=== PATIENT | female | born 1990 | race Caucasian/White ===

== ENCOUNTER 2020-06-24 09:00 | Outpatient (CLI) | payer OTHER, SELFPAY ==
[2020-06-24 09:33] LABS: Basophils Percent Auto 0.4 % (0.2-1.2); Eosinophils Absolute Auto 0.1 K/mm3 (0-0.3); Eosinophils Percent Auto 1.2 % (0-4.4); Hematocrit 32.6 % (37.0-47.0); Hemoglobin 11.2 g/dL (12.0-15.0); Immature Granulocyte Absolute 0.05 K/mm3 (0.00-0.031); Immature Granulocyte Percent A 0.6 % (0-0.5); Lymphocytes Absolute Auto 1.53 K/mm3 (0.9-3.2); Mean Corpuscular HGB Conc 34.4 g/dl (32-36); Mean Corpuscular Hemoglobin 31.9 pg (26-34); Mean Corpuscular Volume 92.9 fl (80-100); Mean Platelet Volume 8.9 fl (7.4-10.4); Monocytes Absolute Auto 0.4 K/mm3 (0.1-0.6); Monocytes Percent Auto 5.3 % (2.6-8.5); Neutrophils Absolute Auto 5.9 K/mm3 (1.3-6.7); Neutrophils Percent Auto 73.5 % (45.5-73.1); Platelet Count Result 204 k/mm3 (150-375); Red Blood Count 3.51 M/mm3 (4.2-5.4); Red Cell Distribution Width 13.1 % (11.5-14.5); White Blood Count 8.1 K/mm3 (4.5-10.0)
[2020-06-24 09:35] LABS: Add Urine Microscopic? NO; Appearance Urine Clear (Clear); Bilirubin Urine Negative (Negative); Blood Urine Negative (Negative); Color Urine Yellow (Yellow); Glucose Urine UA Negative (Negative); Ketones Urine Negative (Negative); Leukocyte Esterase Ur Negative LEU/UL (NEGATIVE); Nitrate Urine Negative (Negative); Protein Urine Negative (Negative); Specific Grav Ur 1.012 (1.001-1.035); Urobilinogen Urine Negative mg/dL (<2.0)
[2020-06-24 10:23] LABS: Vitamin D 25 Hydroxy 32.5 ng/mL
[2020-06-24 10:24] LABS: HIV 1/2 Ab P24 Ag Result Negative (Negative)
[2020-06-24 10:37] LABS: Hepatitis B Surface Antigen Negative (Negative); Rubella IgG Antibody 7.7 IU/ML
[2020-06-24 10:53] LABS: Hepatitis C Virus Antibody Negative (Negative)
[2020-06-25 06:41] LABS: Rapid Plasma Reagin Non-Reactive (NonReactive)
[2020-07-02 20:39] LABS: Hematocrit 34.7 % (35.0-45.0); Hemoglobin 11.6 g/dL (11.7-15.5); MCH 32.4 pg (27.0-33.0); MCV 96.9 FL (80.0-100.0); RDW 14.5 % (11.0-15.0); Red Blood Cell Count 3.58 Mill/uL (3.80-5.10)
== END 2020-06-24 09:01 | disposition home or self-care (01) ==
PROVIDERS: PCP Internal Medicine; Visit Provider Student in an Organized Health Care Education/Training Program
DX: Z34.82 Encounter for supervision of other normal pregnancy, second trimester (principal); Z3A.00 Weeks of gestation of pregnancy not specified
CPT/HCPCS: 36415; 81003; 82306; 83021; 84443; 85025; 86592; 86703; 86762; 86787; 86803; 86850; 86900; 86901; 87086; 87340; G0432

== ENCOUNTER 2020-09-09 14:21 | Outpatient (CLI) | payer OTHER, SELFPAY ==
[2020-09-09 16:07] LABS: Basophils Percent Auto 0.4 % (0.2-1.2); Eosinophils Absolute Auto 0.1 K/mm3 (0-0.3); Eosinophils Percent Auto 0.6 % (0-4.4); Hematocrit 35.6 % (37.0-47.0); Hemoglobin 11.8 g/dL (12.0-15.0); Immature Granulocyte Percent A 0.9 % (0-0.5); Lymphocytes Absolute Auto 1.58 K/mm3 (0.9-3.2); Lymphocytes Percent Auto 14.4 % (18.3-44.2); Mean Corpuscular HGB Conc 33.1 g/dl (32-36); Mean Corpuscular Hemoglobin 31.6 pg (26-34); Mean Corpuscular Volume 95.4 fl (80-100); Mean Platelet Volume 9.1 fl (7.4-10.4); Monocytes Absolute Auto 0.6 K/mm3 (0.1-0.6); Monocytes Percent Auto 5.7 % (2.6-8.5); Neutrophils Absolute Auto 8.6 K/mm3 (1.3-6.7); Platelet Count Result 181 k/mm3 (150-375); Red Blood Count 3.73 M/mm3 (4.2-5.4); Red Cell Distribution Width 13.1 % (11.5-14.5)
[2020-09-09 16:18] LABS: Glucose 1 Hour PP 50gm Dose 117 mg/dL
== END 2020-09-09 14:22 | disposition home or self-care (01) ==
PROVIDERS: PCP Internal Medicine; Visit Provider Student in an Organized Health Care Education/Training Program
DX: Z34.82 Encounter for supervision of other normal pregnancy, second trimester (principal); Z3A.00 Weeks of gestation of pregnancy not specified
CPT/HCPCS: 36415; 82947; 85025

== ENCOUNTER 2020-10-06 14:43 | Outpatient (CLI) | payer OTHER, SELFPAY ==
[2020-10-06 15:06] LABS: Basophils Absolute Auto 0.1 K/mm3 (0.0-0.1); Basophils Percent Auto 0.4 % (0.2-1.2); Eosinophils Absolute Auto 0.1 K/mm3 (0-0.3); Eosinophils Percent Auto 0.9 % (0-4.4); Hematocrit 35.7 % (37.0-47.0); Immature Granulocyte Absolute 0.18 K/mm3 (0.00-0.031); Immature Granulocyte Percent A 1.6 % (0-0.5); Lymphocytes Absolute Auto 1.49 K/mm3 (0.9-3.2); Lymphocytes Percent Auto 12.9 % (18.3-44.2); Mean Corpuscular HGB Conc 33.6 g/dl (32-36); Mean Corpuscular Hemoglobin 32.3 pg (26-34); Mean Platelet Volume 9.2 fl (7.4-10.4); Monocytes Absolute Auto 0.8 K/mm3 (0.1-0.6); Monocytes Percent Auto 7.1 % (2.6-8.5); Neutrophils Percent Auto 77.1 % (45.5-73.1); Platelet Count Result 191 k/mm3 (150-375); Red Blood Count 3.72 M/mm3 (4.2-5.4); Red Cell Distribution Width 13.3 % (11.5-14.5); White Blood Count 11.6 K/mm3 (4.5-10.0)
[2020-10-06 17:12] LABS: HIV 1/2 Ab P24 Ag Result Negative (Negative)
[2020-10-07 06:46] LABS: Rapid Plasma Reagin Non-Reactive (NonReactive)
== END 2020-10-06 14:44 | disposition home or self-care (01) ==
LOC: ANHLAB 14:44
PROVIDERS: PCP Internal Medicine; Visit Provider Student in an Organized Health Care Education/Training Program
DX: Z34.83 Encounter for supervision of other normal pregnancy, third trimester (principal); Z3A.00 Weeks of gestation of pregnancy not specified
CPT/HCPCS: 36415; 85025; 86592; 86703; G0432

== ENCOUNTER 2020-11-17 00:08 | Inpatient (IN) | payer OTHER, SELFPAY ==
[2020-11-17] VITALS (107 sets, daily range): BP systolic 85–134; BP diastolic 46–91; PULSE 25–271; RESP 16–18; TEMP 36.2–37.3; O2SAT 79–100; BMI 31.1
[2020-11-17 01:15] LABS: Basophils Absolute Auto 0.1 K/mm3 (0.0-0.1); Basophils Percent Auto 0.4 % (0.2-1.2); Eosinophils Absolute Auto 0.1 K/mm3 (0-0.3); Eosinophils Percent Auto 0.8 % (0-4.4); Hematocrit 35.3 % (37.0-47.0); Hemoglobin 11.8 g/dL (12.0-15.0); Immature Granulocyte Absolute 0.15 K/mm3 (0.00-0.031); Immature Granulocyte Percent A 1.3 % (0-0.5); Lymphocytes Absolute Auto 1.96 K/mm3 (0.9-3.2); Lymphocytes Percent Auto 16.5 % (18.3-44.2); Mean Corpuscular HGB Conc 33.4 g/dl (32-36); Mean Corpuscular Hemoglobin 31.5 pg (26-34); Mean Corpuscular Volume 94.1 fl (80-100); Mean Platelet Volume 9.2 fl (7.4-10.4); Monocytes Percent Auto 8.3 % (2.6-8.5); Neutrophils Absolute Auto 8.6 K/mm3 (1.3-6.7); Neutrophils Percent Auto 72.7 % (45.5-73.1); Platelet Count Result 183 k/mm3 (150-375); Red Blood Count 3.75 M/mm3 (4.2-5.4); Red Cell Distribution Width 13.2 % (11.5-14.5); White Blood Count 11.9 K/mm3 (4.5-10.0)
--- NOTE | 2020-11-17 01:18 | LDADM ---
This patient, Dilma Woodward, was admitted to Labor/Delivery/Recovery 107 on 11/17/20 at 00:08. Plans for labor, pain management and were discussed with patient. Patient/family oriented to hospital policies and general routines including ID bracelet, bed and alarms, visiting hours, pain management, procedures, bathroom and other care routines, personal items, smoking policy, room service/diet and guest tray routines, infant security routines, and visiting hours. Patient/Family are encouraged to report perceived risks to care and to ask questions if they do not understand what they are told or what they should do. See OBIX for further documentation.
[2020-11-17] MEDS: LACTATED RINGERS 1,000 ML 125 ML IV CONT ×4 (01:21→06:30)
--- NOTE | 2020-11-17 02:12 | P.PNAN_ITS ---
Anes - Eval Pre Procedure Date/Time: 11/17/20 02:12 Pre Op Diagnosis: Leaking fluid Patient Data Age: 30 Gender: F Height: 1.73 m Weight: 93 kg Last Vital Signs Temp 36.2 C L 11/17/20 02:01 Pulse 93 11/17/20 02:10 BP 111/71 11/17/20 02:10 Pulse Ox 100 11/17/20 02:10 Allergies Allergy/AdvReac Type Severity Reaction Status Date / Time No Known Allergies Allergy Unknown Verified 11/13/20 12:49 Home Medications Medication Instructions Recorded Confirmed Type prenat.vits,esthela,zfg-[id number] 1 tablet PO DAILY 05/09/20 10/29/20 History Laboratory Tests 11/17/20 11/17/20 01:06 01:06 WBC 11.9 K/mm3 H K/mm3 (4.5-10.0) RBC 3.75 M/mm3 L M/mm3 (4.2-5.4) Hgb 11.8 g/dL L g/dL (12.0-15.0) Hct 35.3 % L % (37.0-47.0) MCV 94.1 fl fl (80-100) MCH 31.5 pg pg (26-34) MCHC 33.4 g/dl g/dl (32-36) RDW 13.2 % % (11.5-14.5) Plt Count 183 k/mm3 k/mm3 (150-375) MPV 9.2 fl fl (7.4-10.4) Immature Gran % (Auto) 1.3 % H % (0-0.5) Neut % (Auto) 72.7 % % (45.5-73.1) Lymph % (Auto) 16.5 % L % (18.3-44.2) [place] % (Auto) 8.3 % % (2.6-8.5) Eos % (Auto) 0.8 % % (0-4.4) Baso % (Auto) 0.4 % % (0.2-1.2) Lymph # (Auto) 1.96 K/mm3 K/mm3 (0.9-3.2) [place] # (Auto) 1.0 K/mm3 H K/mm3 (0.1-0.6) Eos # (Auto) 0.1 K/mm3 K/mm3 (0-0.3) Baso # (Auto) 0.1 K/mm3 K/mm3 (0.0-0.1) Abs Immat Gran (auto) 0.15 K/mm3 H K/mm3 (0.00-0.031) Absolute Neuts (auto) 8.6 K/mm3 H K/mm3 (1.3-6.7) Absolute Nucleated RBC 0.0 K/mm3 K/mm3 (0.0-0.012) Nucleated RBC % 0.0 % % (0.0-0.2) RPR Pending Patient hx anesthesia problems: none Family hx anesthesia problems: none PMFSH Past Medical History Medical History History of depression 2011 History of ectopic 02/2019 Miscarriage x2 Surgical History Surgical History History of salpingectomy 2018 Family History Family History Grandparent Breast cancer Other Diabetes mellitus Social History Social History Smoking status: Never smoker Second hand tobacco smoke exposure: No Alcohol intake: former Substance use: never Gender identity (if verbalized by the patient): Female Spiritual care concerns: No Exam Day of Procedure 11/17/20 02:12 Patient weight: overweight Heart: regular rate and rhythm Lungs: clear to auscultation and normal air movement Airway: Mallampati scale class II Neurological: alert and oriented
--- NOTE | 2020-11-17 02:13 | WPDANESEFPP ---
Anes - Eval Final PreProcedure Day of Procedure 11/17/20 02:13 Patient weight: overweight Heart: regular rate and rhythm Lungs: clear to auscultation and normal air movement Airway: Mallampati scale class II Neurological: alert and oriented ASA classification: II Anesthetic plan: proceed Anesthesia type and monitoring: standard monitoring Informed Consent: The patient's anesthetic plan and its attendant risks and benefits were discussed with the patient/family/POA. Questions were solicited and answers provided to the satisfaction of the patient/family/POA.
[2020-11-17] MEDS: OXYTOCIN 30 UNITS/NS 500 ML 30 UNITS/500 ML BAG IV CONT (05:38)
[2020-11-17] MEDS: miSOPROStol 200 MCG TABLET 1000 MCG (07:15)
[2020-11-17] MEDS: OXYTOCIN 30 UNITS/NS 500 ML 30 UNITS/500 ML BAG 125 UNITS IV CONT (07:34)
--- NOTE | 2020-11-17 07:34 | PM.IMHP ---
H&P: HPI History of Present Illness Date/Time: 11/17/20 07:34 Patient is a 30-year-old last menstrual period 02/16/2020 who presented to Labor and delivery shortly after midnight on 11/17/2020 at 39 weeks 2 days gestation with complaints of leakage of fluid and contractions. Patient is dated by LMP which was consistent with an ultrasound on 05/09/2020 at 12 weeks gestation. Patient reported leakage of fluid at 11:00 p.m. Reported clear amniotic fluid. Patient reports onset of contractions shortly thereafter. Patient was noted to be grossly ruptured upon arrival to Labor and delivery and was 5 cm dilated. Decision was made to admit patient in active labor. Chief Complaint: Labor Review of Systems Review of Systems: All systems reviewed & are unremarkable except as noted in HPI and below Constitutional: Constitutional: Reports as per HPI, Reports no additional constitutional complaints, Denies chills, Denies fever(s), Denies headache(s) and Denies night sweats Eyes: Eyes: Reports as per HPI and Reports no additional eye complaints ENT: Reports system reviewed and no additional complaints, except as documented, Reports as per HPI, Reports Normal hearing present and Denies headache(s) Cardiovascular: Cardiovascular: Reports as per HPI, Reports no additional cardiovascular complaints, Denies chest pain and Denies dyspnea Respiratory: Respiratory: Reports as per HPI, Reports no additional respiratory complaints, Denies cough and Denies dyspnea Gastrointestinal: Gastrointestinal: Reports as per HPI, Reports no additional gastrointestinal complaints, Denies abdominal pain, Denies change in bowel habits, Denies change in stool character, Denies nausea and Denies vomiting Genitourinary: Genitourinary: Reports no additional female genitourinary complaints, Reports as per HPI, Denies abnormal vaginal bleeding, Denies genital lesions, Denies hot flashes, Denies dyspareunia, Denies pelvic pain, Denies sexual dysfunction, Denies urinary incontinence, Denies vaginal discharge, Denies vaginal dryness and Denies vaginal odor Musculoskeletal: Musculoskeletal: Reports no additional musculoskeletal complaints and Reports as per HPI Integumentary/Breasts: Skin/Breast: Reports system reviewed and no additional complaints, except as docu, Reports as per HPI, Denies breast pain and Denies nipple discharge Neurologic: Reports system reviewed and no additional complaints, except as documented, Reports as per HPI, Reports Normal hearing present and Denies headache(s) Psychiatric: Psychiatric: Reports no additional psychiatric complaints, Reports as per HPI, Denies anxiety and Denies depression Endocrine: Endocrine: Reports no additional endocrine complaints and Reports as per HPI Hematologic/Lymphatic: Hematologic/Lymphatic: Reports no additional hematologic/lymphatic complaints and Reports as per HPI Allergic/Immunologic: Allergic/Immunologic: Reports no additional allergic/immunologic complaints and Reports as per HPI PMFSH Past Medical History Medical History History of depression 2011 History of ectopic 02/2019 Miscarriage x2 Surgical History Surgical History History of salpingectomy 2018 Family History Family History Grandparent Breast cancer Other Diabetes mellitus Social History Social History Smoking status: Never smoker Second hand tobacco smoke exposure: No Alcohol intake: former Substance use: never Gender identity (if verbalized by the patient): Female Spiritual care concerns: No Meds Home Medications and Allergies Home Medications Medication Instructions Recorded Confirmed Type prenat.vits,esthela,hoc-vpnc-ybscg 1 tablet PO DAILY 05/09/20 10/29/20 History Allergies Allergy/AdvReac
--- NOTE | 2020-11-17 07:42 | WPDHPUPDATE1 ---
History and Physical Update Update Date/Time: 11/17/20 07:42 History and Physical has been reviewed, including an updated exam of the patient. There are NO changes in the patient's condition. Risks, benefits, and alternatives have been discussed and questions answered. Patient agrees to proceed with procedure.
--- NOTE | 2020-11-17 07:42 | PM.OBPRVD ---
OB - Delivery Note Procedure Delivery date: 11/17/20 Procedure: Patient is a 30-year-old now who presented to labor and delivery shortly after midnight on 11/17/2020 at 39 weeks 2 days gestation with complaints of leakage of fluid and contractions. Patient was noted to be grossly ruptured and max approximately every 3 minutes. Decision was made to admit patient in active labor. Per RN, patient was 5 cm dilated at time of presentation. She was admitted to labor and delivery and allowed to progress on own. Patient became increasingly uncomfortable and requested an epidural for pain management, which was placed without difficulty. Patient made slow progress and was noted to be 7 cm after approximately 5 hours on labor and delivery. Decision was made to augment patient with Pitocin. an IUPC was also placed for enhanced monitoring. Pitocin was started and slowly titrated. Patient made progressive cervical change. She was found to be fully dilated at 6:40 a.m. Patient was encouraged to push and found to be pushing well. She was prepped and draped for delivery. At 7:12 a.m., patient delivered infant head in direct OA presentation. 's head was delivered atraumatically and without difficulty. Occiput restituted to maternal right side. With subsequent push, the infant's neck, shoulders, and rest of body were delivered without difficulty. Infant was crying spontaneously. Infant's nose and mouth were suctioned with bulb suction. The was placed on maternal abdomen where care was assumed by awaiting nursing staff. Delayed cord clamping was performed for approximately 60 seconds. The cord was clamped and cut. A segment of cord was collected for cord gases. Cord blood was collected. The placenta was delivered spontaneously and intact. A moderate amount of vaginal bleeding was noted. On inspection, no lacerations were noted. Uterus was mildly atonic. Vigorous bimanual massage was performed, however, mild atony persisted. Straight catheterization was performed with return of less than 10 cc of clear urine. Cytotec 1000 mcg was administered rectally and bleeding subsided. Estimated blood loss for entire delivery was 300 cc. The was a live-born female , weighing 8 lb 10 oz, Apgars 9 and 9. Both mother and baby doing well at the end of delivery. events: Labor Augmentation Intrapartal events: None Delivery augmentation: pitocin Delivery monitor: external FHT, external uterine and internal uterine Route of delivery: Laceration Description: None Specimen: Yes (cord blood and cord gases) Quantitative Blood Loss (ml): 300 Anesthesia type: Epidural Disposition: floor Complications: No immediate complications Baby Date of : 11/17/20 Time of : 07:12 Weeks of gestation at delivery: 39 (39.2) gender: Female Weight (pounds): 8 Weight (ounces): 10 presentation: vertex position: Right Occiput Anterior (direct OA, then occiput restituted to right) Placenta delivery description: Spontaneous cord vessel description: 3 Vessels and Delayed Cord Clamping score one minute: 9 score five minutes: 9
--- NOTE | 2020-11-17 10:00 | PC.NURSE ---
Patient transferred to post room #282 per wheelchair from labor and delivery. Support person present. Oriented to unit, room, information board, rooming in, admission packet and security measures. Patient verbalizes understanding.
[2020-11-17] MEDS: BENZOCAINE 20% AER SPR (*SP) 56 GM CAN 1 SPRAY TOPICAL (10:20)
[2020-11-17] MEDS: WITCH HAZEL 40 PADS 1 PAD TOPICAL (10:20)
--- NOTE | 2020-11-17 11:30 | PC.NURSE ---
Mother called out for assist with feeding. Consulted with patient, mother reports has fed well first feeding. Mother reports she breast, formula and pumped and bottle fed first child. Mother was always concerned was not getting enough. Reviewed colostrum to milk transitioning, signs of adequate intake and nurse assessment of infant discussing with parents if infant is not WNL for signs of adequate intake. Mother states she is also concerned she has small nipples and may need a nipple shield. Both nipples appear normal with small profile. Demonstrated rolling or self expressing before latch may draw and/or elongate nipple before latching Reviewed feeding cues, frequencies, duration of feedings, feeding elimination flow sheet, and signs of adequate intake. Demonstrated stimulation techniques to wake infant for feeding. Assisted with infant to breast. Reviewed positioning/alignment in cross cradle, holding breast in U hold and guided asymmetrical latch on. was able to latch within a few attempts. Infant nursed eagerly, with steady draws and frequent swallowing noted. Reviewed signs of a correct latch, effective nursing and suck swallow ratio. Infant was able to maintain latch. Mother reported tenderness at times, infant had slipped to shallow latch. Demonstrated how to adjust latch more deeply while feeding. Mother quickly reports she can feel infant is latched more deeply and has minimal tenderness. Reviewed nipple care of lanolin, as needed. Suggested to stimulate infant while feeding to keep infant awake and nursing effectively for increased stimulation and increased intake. Instructed mother to call out for RN assistance if she is unable to latch infant for feeding or she has discomfort with nursing. Instructed feeding should be initiated three hours from start of last feeding or if feeding cues are noted before. Mother voiced understanding of information shared.
[2020-11-17 11:36] LABS: Rapid Plasma Reagin Non-Reactive (NonReactive)
[2020-11-17] MEDS: LANOLIN (LANSINOH) 7.5 GM CREAM 1 APPLIC TOPICAL (12:58)
[2020-11-17] MEDS: IBUPROFEN 600 MG TABLET PO (19:30)
[2020-11-18 04:00] VITALS: BP 117/79; PULSE 76; RESP 16; TEMP 36.6
[2020-11-18 05:33] LABS: Hemoglobin 10.5 g/dL (12.0-15.0)
[2020-11-18] MEDS: IBUPROFEN 600 MG TABLET PO ×2 (07:55→13:39)
[2020-11-18] MEDS: DOCUSATE SODIUM 100 MG CAPSULE PO (07:55)
[2020-11-18] MEDS: BENZOCAINE 20% AER SPR (*SP) 56 GM CAN 1 SPRAY TOPICAL (07:55)
[2020-11-18] MEDS: WITCH HAZEL 40 PADS 1 PAD TOPICAL (07:55)
[2020-11-18] MEDS: MULTIVIT/MIN/PREN/FOL AC/IRON TABLET 1 TAB PO (07:55)
[2020-11-18 08:00] VITALS: BP 121/88; PULSE 76; RESP 18; TEMP 36.6
--- NOTE | 2020-11-18 08:45 | PC.NURSE ---
Consult with pt., mother reports was cluster feeding most of the night. Mother reports tenderness with some feedings and voices concerns infant is getting enough. Mother supplemented during the night, and is now concerned wants to bottle feed more than breast. Assured mother it is fine to supplement small amounts after if she is concerned. Requested mother call out next feeding for assist.
--- NOTE | 2020-11-18 08:48 | WPDANLDPN2 ---
Anes-Prog Note L&D Date/Time: 11/18/20 08:48 Comfortable throughout: labor and delivery Neuraxial method: epidural Epidural/Spinal procedure site: clean & non-tender Neuro status: Neuro function grossly intact. Cardiovascular status: normal Respiratory status: normal Airway patency: baseline Mental status: baseline Post-Op hydration status: normal Vital Signs: Last Vital Signs Temp 36.6 C 11/18/20 08:00 Pulse 76 11/18/20 08:00 Resp 18 11/18/20 08:00 BP 121/88 11/18/20 08:00 Pulse Ox 98 11/17/20 12:23 Pain score (VAS): 0 Post-procedural complaints: none Patient feedback: Patient satisfied with anesthetic care.
--- NOTE | 2020-11-18 09:52 | PM.OBPNVD ---
OB - PN: Subj Subjective Date/time seen: 11/18/20 09:52 Patient crying this AM. States that the baby did not sleep much last night and that she has blues. Reports similar episode following of previous child as well. Has been on Zoloft and Lexapro in the past for anxiety and similar feelings. States that she will be happy, but that it takes a little while for her to adjust. Denies any homicidal or suicidal ideation. consoling patient as well. Otherwise, patient reports moderate lochia. Denies significant vaginal discomfort. OB - PN: Obj Data Labs CBC & Chem 7: 11/18/20 03:54 Labs: Laboratory Results - last 24 hr 11/17/20 11/18/20 01:06 03:54 Hgb 10.5 L Hct 32.0 L RPR Non-reactive OB - PN A/P Assessment and Plan (1) Normal spontaneous vaginal delivery: Code(s): O80 - Encounter for full-term uncomplicated delivery Status: Acute Assessment and Plan: PPD#1 doing well continue routine care may be dc'd home in stable condition emergency precautions reviewed (2) Mild depression: Code(s): O99.345 - Other mental disorders complicating the puerperium; F53.0 - depression Status: Acute Assessment and Plan: pt with crying episode today will restart Zoloft as pt states she did well previously on medication emergency precautions reviewed with patient and support and encouragment given Time Spent With Patient Time: Total time spent is greater than 50% in coordination of care (as documented) at patient's floor/unit and/or counseling patient:
--- NOTE | 2020-11-18 11:42 | PC.NURSE ---
1115 Mother called out for assist with feeding. Reviewed feeding cues, frequencies, duration of feedings, feeding elimination flow sheet, and signs of adequate intake. Demonstrated stimulation techniques to wake for feeding. Assisted with to breast. Reviewed positioning/alignment in cross cradle, holding breast in U hold and guided asymmetrical latch on. Infant was able to latch correctly within a few attempts. Infant nursed eagerly, with steady draws and occasional swallowing noted for bursts, followed with long pausing. Mother reported tenderness at times, had slipped to shallow latch. Demonstrated how to adjust latch more deeply while feeding. Mother quickly reports she can feel is latched more deeply and has minimal tenderness. Suggested to stimulate while feeding to keep infant awake and nursing effectively for increased stimulation, increased intake and to assist with maintaining deep latch. Reviewed signs of a correct latch, effective nursing and suck swallow ratio. was able to maintain latch without discomfort to mother. Nipple care reviewed. Mother questions if she should initiate pumping. Advised if infant continues to nurse,as she did with this feeding, is providing adequate stimulation and mother does not need to pump. If infant does not nurse or is not effectively nursing then mother should initiate pumping. Mother v/u of information shared. Mother plans on discharge this day. Mother is able to independently latch infant with appropriate positioning/alignment. She is feeding as required and waking infant to feed if needed. is feeding as required with at least 8 effective feedings in the past 24 hours, and is currently meeting outcomes for weight, output, jaundice and feeding frequencies. Mother states she feels confident to continue effective at home. Reviewed transition to breast milk, signs of adequate intake, and engorgement/relief. Instructed to call ICP if intake/output less than required. Reviewed regular medications mother is taking. Information provided per Bianca. Reviewed community resources on the [facility] website and in the Mom/Baby guide. Information on outpatient services provided. Mother has no further questions at this time.
[2020-11-18] MEDS: SERTRALINE HCL 50 MG TABLET PO (13:39)
--- NOTE | 2020-11-18 13:55 | PC.NURSE ---
Patient was given the opportunity to view the discharge video Mother & Baby Care, The First Two Weeks and to ask questions. Patient declined viewing the video and has been given the mother/baby guide for home reference.
--- NOTE | 2020-11-18 13:56 | PC.NURSE ---
Self care and infant care discharge instructions given to mother including follow up visit date and time. Pt. verbalized understanding. No questions or concerns voiced. at side.
--- NOTE | 2020-11-18 15:10 | PM.DS ---
DS: Admitting Diagnosis Admitting Diagnosis Admitting Diagnosis: labor DS: Summary Hospital Course Hospital Course: uncomplicated Time Spent with Patient Time attestation: Total time spent providing and/or coordinating discharge services: DS: Data Data Completed and Pending Labs on day of discharge: Labs from last 24 hours 11/18/20 03:54 Hgb 10.5 L Hct 32.0 L Discharge Plan Discharge Attending physician on discharge: Romana Young Discharging Clinician: Romana Young Anticipated Discharge Date/Time: 11/18/20 15:00 Patient Disposition: Home, Self-Care Activity: may shower and pelvic rest Diet: regular Discharge Instructions: Education: Mom and Baby Guide Given to: Mother Follow-Up: Call your delivering provider's office for an appointment to be seen in: 4 Weeks Mom and baby should come to the [facility] for the follow-up appointment. Appointment Date/Time: October at 11:00 am What to expect at your follow-up visit: Blood Pressure Check Physical Assessment Call [phone] if you are unable to keep your appointment time. BREAST CARE: * Wear a snug supportive bra. * For engorgement discomfort: Breast Feeding: * Apply warm moist washcloths * Express milk as needed to relieve engorgement * Wear loose clothing Bottle Feeding: * May apply ice packs * For sore nipples: * Identify correct latch-on * Apply warm moist washcloths before and after nursing * Air dry nipples after nursing * May apply [place] cream to nipples PERINEAL CARE: * Until bleeding stops, use your sae bottle after urinating * Change your pad frequently throughout the day * You may take sitz baths several times a day (fill your bathtub with warm water and soak for 20 minutes.) Do NOT bathe in the water * No tub baths until seen by your physician - You may shower ACTIVITY: * Rest as much as possible. * Do not exercise or lift anything heavier than your baby (such as laundry or other children.) * Avoid stairs or driving as much as possible. * Do not put anything into the vagina. No douching, tampons, or sexual activity until seen by physician. NOTIFY PHYSICIAN IF YOU HAVE ANY QUESTIONS OR IF ANY OF THE FOLLOWING SYMPTOMS OCCUR: * If your vaginal bleeding becomes foul smelling. * If your vaginal bleeding becomes more heavy than a period or if your bleeding changes from pink to bright red. However, you may pass an occasional walnut-sized clot once or twice for the first week . * If you experience a sharp, shooting pain in you calves. * If you discover a hard, reddened area on your breast or if you experience flu-like symptoms. DIET: * Eat regular, well-balanced meals. * Drink plenty of fluids daily. If , drink to thirst. Patient Instructions: Antibiotic Form Stand Alone Forms: General Discharge Information Follow-up/Referrals: Lor Alcaraz MD [Physician] - 1 Week Romana Young MD [Physician] - Discharge Medications: New ibuprofen 600 mg Tablet 600 mg PO Q6H PRN (Reason: Cramping) RF: 0 sertraline 50 mg tablet 50 mg PO DAILY Qty: 30 RF: 0 Discontinued prenat.vits,esthela,ron-heea-geyxo Tablet 1 tablet PO DAILY RF: 0 Date of admission: 11/17/20 00:08 Primary Care Provider: Kalin Warren Admitting Provider: Romana Young Attending physician on admission: Romana Young Condition: Stable
[2020-11-20 11:58] VITALS: BP 136/80; PULSE 84; RESP 20; TEMP 36.8; O2SAT 100
== END 2020-11-18 15:17 | disposition home or self-care (01) | DRG 807 ==
LOC: ANHLDR 00:40 → ANHOB2 10:06
PROVIDERS: Admitting Provider Student in an Organized Health Care Education/Training Program; PCP Internal Medicine; Visit Provider Student in an Organized Health Care Education/Training Program
DX: O36.8330 Maternal care for abnormalities of the fetal heart rate or rhythm, third trimester, not applicable or unspecified (principal); Z37.0 Single live birth; Z3A.39 39 weeks gestation of pregnancy; O99.345 Other mental disorders complicating the puerperium; F53.0 Postpartum depression; O75.89 Other specified complications of labor and delivery
CPT/HCPCS: 36415; 84112; 85014; 85018; 85025; 86592; 86850; 86900; 86901; A9270; J2590; J2795; J7120

== ENCOUNTER 2021-12-08 17:07 | Emergency (ER) | payer OTHER, SELFPAY ==
--- NOTE | ~2021-12-08 | US_ITS ---
EXAMINATION: US OB <=14 wk fetus w TV INDICATION: Pain and bleeding, evaluate for ectopic. History of 2 prior miscarriages and one prior ec topic. TECHNIQUE: Sonography of the pelvis was performed by transabdominal and transvaginal techniques. COMPARISON: None. RESULT: Uterus: - Orientation: Retroverted and retroflexed. - Size: 7.7 x 6.5 x 5.5 cm - Myometrium: homogeneous echogenicity . Endometrial complex measures 11 mm. Trace endometrial f luid. Gestation: - Intrauterine gestational sac: Not seen -Subgestational hematoma: Absent Right ovary: - Size : 2.8 x 2.3 x 1.0 cm - Normal sonographic appearance with physiologic follicles. Dilated adnexal veins. Left ovary: - Size: 2.5 x 1.7 x 2.5 cm - Normal sonographic appearance with physiologic follicles. Dilated adnexal veins. Pelvis free fluid: None. IMPRESSION: 1. No visible intrauterine gestational sac, which may be normal in early . Spontaneous abort ion and ectopic are not excluded. Serial beta hCGs are recommended. 2. Dilated bilateral adnexal veins as can be seen with pelvic congestion syndrome. Correlate clinical ly for persistent dull pelvic pain lasting > 6 months, dysmenorrhea, dyspareunia, postcoital ache, an d urinary symptoms. Reviewed, dictated and finalized at location [facility]. IMPRESSION: 1. No visible intrauterine gestational sac, which may be normal in early pregna ncy. Spontaneous and ectopic are not excluded. Serial beta h CGs are recommended. 2. Dilated bilateral adnexal veins as can be seen with pelvic congestion syndro me. Correlate clinically for persistent dull pelvic pain lasting > 6 months, dy smenorrhea, dyspareunia, postcoital ache, and urinary symptoms.
[2021-12-08 17:11] VITALS: BP 123/85; PULSE 96; RESP 20; TEMP 36.3; O2SAT 100
[2021-12-08 17:26] LABS: Basophils Absolute Auto 0.1 K/mm3 (0.0-0.1); Basophils Percent Auto 0.6 % (0.2-1.2); Eosinophils Absolute Auto 0.2 K/mm3 (0-0.3); Eosinophils Percent Auto 2.2 % (0-4.4); Hematocrit 38.3 % (37.0-47.0); Hemoglobin 13.3 g/dL (12.0-15.0); Immature Granulocyte Absolute 0.03 K/mm3 (0.00-0.031); Immature Granulocyte Percent A 0.3 % (0-0.5); Lymphocytes Percent Auto 25.5 % (18.3-44.2); Mean Corpuscular HGB Conc 34.7 g/dl (32-36); Mean Corpuscular Hemoglobin 31.9 pg (26-34); Mean Corpuscular Volume 91.8 fl (80-100); Mean Platelet Volume 8.6 fl (7.4-10.4); Monocytes Absolute Auto 0.7 K/mm3 (0.1-0.6); Monocytes Percent Auto 7.5 % (2.6-8.5); Neutrophils Absolute Auto 5.5 K/mm3 (1.3-6.7); Neutrophils Percent Auto 63.9 % (45.5-73.1); Platelet Count Result 271 k/mm3 (150-375); Red Blood Count 4.17 M/mm3 (4.2-5.4); Red Cell Distribution Width 12.2 % (11.5-14.5); White Blood Count 8.6 K/mm3 (4.5-10.0)
[2021-12-08 17:58] LABS: Beta HCG Quantitative 217.63 mIU/ML
--- NOTE | 2021-12-08 19:35 | ED.FEMALEGU ---
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 Patient reports home test was positive few weeks ago, last menstrual period was October 24, 2021. Patient is 6 para 2 2 and ectopic once. She denies any fever, chills, nausea, vomiting. Related Data Allergies Allergy/AdvReac Type Severity Reaction Status Date / Time No Known Allergies Allergy Unknown Verified 12/08/21 19:24 Review of Systems Review of Systems: All systems reviewed & are unremarkable except as noted in HPI and below PMFSH Past Medical History Medical History History of depression 2012 History of ectopic x1 History of miscarriage, currently Miscarriage x2 Vaginal delivery x2 Surgical History Surgical History History of salpingectomy 2019 Family History Family History Grandparent Breast cancer Other Diabetes mellitus Social History Social History Smoking status: Never smoker Second hand tobacco smoke exposure: No Alcohol intake: former Alcohol use details: history of two drinks per month Substance use: never Gender identity (if verbalized by the patient): Female Spiritual care concerns: No Exam Narrative: General appearance: Well-developed, well-nourished, at the bedside Skin: Normal color Head: Normocephalic, nontraumatic Eyes: Clear conjunctiva ENT: Oropharynx normal, ears normal, nose normal Neck: Supple, nontender Chest and respiratory: Airway patent, no respiratory distress, no accessory muscle use Heart: Regular rate/rhythm Abdomen: Soft, nontender, no organomegaly, quiet bowel sounds Vascular: Normal peripheral pulses, normal capillary refill. 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 Knapp. Patient can go home, repeat hCG in 48 hours, call Dr. Young in a.m. for appointment. Ectopic is extremely less likely specially if she have tissue in the cervix. Date: 12/08/21 Time: 20:50 Vital Signs Vital signs: Vital Signs Temperature 36.3 C L 12/08/21 17:11 Pulse Rate 96 12/08/21 17:11 Respiratory Rate 20 12/08/21 17:11 Blood Pressure 123/85 12/08/21 17:11 Pulse Oximetry 100 12/08/21 17:11 Temperature 36.3 C L 12/08/21 17:11 Pulse Rate 96 12/08/21 17:11 Respiratory Rate 20 12/08/21 17:11 Blood Pressure 123/85 12/08/21 17:11 Pulse Oximetry 100 12/08/21 17:11 MDM - Female Genitourinary Lab Data Result diagrams: 12/08/21 17:19 Labs: Lab Results 12/08/21 12/08/21 12/08/21 Range/Units 17:19 17:19 17:19 WBC 8.6 (4.5-10.0) K/mm3 RBC 4.17 L (4.2-5.4) M/mm3 Hgb 13.3 (12.0-15.0) g/dL Hct 38.3 (37.0-47.0) % MCV 91.8 (80-100)
== END 2021-12-08 21:14 | disposition home or self-care (01) ==
PROVIDERS: Emergency Medicine; Emergency Provider Emergency Medicine; PCP Internal Medicine
DX: O20.0 Threatened abortion (principal); Z3A.01 Less than 8 weeks gestation of pregnancy
CPT/HCPCS: 36415; 76801; 76817; 84702; 85025; 85461; 99284

== ENCOUNTER 2021-12-10 17:14 | Outpatient (CLI) | payer OTHER, SELFPAY ==
[2021-12-10 17:59] LABS: Beta HCG Quantitative 58.88 mIU/ML
[2021-12-15 11:58] LABS: Progesterone 0.8 ng/mL (***)
== END 2021-12-10 17:15 | disposition home or self-care (01) ==
LOC: ANHLAB 17:15
PROVIDERS: PCP Internal Medicine; Visit Provider Obstetrics & Gynecology
DX: O09.299 Supervision of pregnancy with other poor reproductive or obstetric history, unspecified trimester (principal); Z3A.00 Weeks of gestation of pregnancy not specified
CPT/HCPCS: 36415; 84144; 84702

== ENCOUNTER 2022-01-07 12:55 | Emergency (ER) | payer OTHER, SELFPAY ==
[2022-01-07 13:12] VITALS: BP 93/67; PULSE 68; RESP 18; O2SAT 99
--- NOTE | 2022-01-07 13:35 | ED.ABDPAIN ---
HPI - Abdominal Pain General Chief Complaint: Abdominal Pain Stated Complaint: abd pain Time Seen by Provider: 01/07/22 13:01 History of Present Illness HPI narrative: 31-year-old female presents emergency room secondary some left suprapubic abdominal pain. Patient states that she has had pain like this before associated with an ectopic . She had multiple pregnancies and has 2 children at this time. She has had 3 miscarriages including her last miscarriage was approximately a month ago. She is also had 1 ectopic on the left side. She has not had a period since her last menstrual period. Denies any chills or fevers. She states she had sudden onset of just mild cramping type pain in the left lower supra area. She states it actually feels much better at this time. Denies any urinary symptoms. Related Data Allergies Allergy/AdvReac Type Severity Reaction Status Date / Time No Known Allergies Allergy Unknown Verified 01/07/22 13:22 Review of Systems Review of Systems: CONSTITUTIONAL: Denies fever, chills, or sweats. EYES: Denies visual changes, redness, or discharge. ENT: Denies rhinorrhea, congestion, sore throat, or otalgia. CARDIOVASCULAR: Denies chest pain, palpitations, or edema. RESPIRATORY: Denies cough or dyspnea. GASTROINTESTINAL: Denies nausea, vomiting, or diarrhea. Left suprapubic abdominal pain GENITOURINARY: Denies dysuria or hematuria. SKIN: Denies rash or itching. MUSCULOSKELETAL: Denies back pain, joint pain, or myalgia. NEUROLOGIC: Denies headache, numbness, or weakness. PSYCHIATRIC: Denies anxiety or depression. [facility] Past Medical History Medical History History of depression 2012 History of ectopic x1 History of miscarriage, currently Miscarriage x3 Vaginal delivery x2 Surgical History Surgical History History of salpingectomy 2019 Family History Family History Grandparent Breast cancer Other Diabetes mellitus Social History Social History Smoking status: Never smoker Second hand tobacco smoke exposure: No Alcohol intake: former Alcohol use details: history of two drinks per month Substance use: never Gender identity (if verbalized by the patient): Female Spiritual care concerns: No Exam Narrative: APPEARANCE: Well appearing, no pain or distress, well-nourished. Head normocephalic and atraumatic. EYES: PERRLA/EOMI, conjunctivae very clear. NOSE: Normal with no drainage EARS:TMS clear [place], with good light reflex. THROAT: Pharynx clear, no exudate. NECK: Supple. No adenopathy, no masses. RESPIRATORY: Airway patent, respirations nonlabored. Clear to auscultation bilaterally, no rales, rhonchi, wheezing. CARDIOVASCULAR: Regular rate and rhythm without murmurs, rubs, or gallops. ABDOMINAL: Soft, nontender, nondistended, no hepatosplenomegaly. No tenderness is able to be elicited with palpation Musculoskeletal: Moves all extremities. Strength/ROM intact, No edema, No calf tenderness. NEURO: Alert. Cranial nerves II through XII intact. Normal gait. Good coordination. Nonfocal examination. SKIN:: Warm, dry. Normal Color PSYCHIATRIC: Normal affect/mood, normal interaction Course Vital Signs Vital signs: Vital Signs Pulse Rate 68 01/07/22 13:12 Respiratory Rate 18 01/07/22 13:12 Blood Pressure 93/67 L 01/07/22 13:12 Pulse Oximetry 99 01/07/22 13:12 Oxygen Delivery Room Air 01/07/22 13:12 Pulse Rate 68 01/07/22 13:12 Respiratory Rate 18 01/07/22 13:12 Blood Pressure 95/63 L 01/07/22 13:46 Pulse Oximetry 99 01/07/22 13:46 Oxygen Delivery Room Air 01/07/22 13:12 MDM - Abdominal Pain MDM Narrative Medical decision making narrative: Urine test was negative an
[2022-01-07 13:38] VITALS: O2SAT 99
[2022-01-07 13:39] VITALS: BP 96/61; O2SAT 100
[2022-01-07 13:45] VITALS: O2SAT 99
[2022-01-07 13:46] VITALS: BP 95/63; O2SAT 99
== END 2022-01-07 14:11 | disposition home or self-care (01) ==
PROVIDERS: Emergency Provider Emergency Medicine; PCP Internal Medicine
DX: R10.32 Left lower quadrant pain (principal)
CPT/HCPCS: 81025; 99283

== ENCOUNTER 2022-05-13 13:20 | Outpatient (CLI) | payer OTHER, SELFPAY ==
[2022-05-13 14:31] LABS: Beta HCG Quantitative 108.32 mIU/ML
== END 2022-05-13 13:21 | disposition home or self-care (01) ==
LOC: ANHLAB 13:22
PROVIDERS: PCP Internal Medicine; Visit Provider Student in an Organized Health Care Education/Training Program
DX: O02.1 Missed abortion (principal); Z3A.00 Weeks of gestation of pregnancy not specified
CPT/HCPCS: 36415; 84702

== ENCOUNTER 2022-05-15 11:44 | Outpatient (CLI) | payer OTHER, SELFPAY ==
[2022-05-15 12:27] LABS: Beta HCG Quantitative 119.39 mIU/ML
== END 2022-05-15 11:45 | disposition home or self-care (01) ==
LOC: ANHLAB 11:46
PROVIDERS: PCP Internal Medicine; Visit Provider Student in an Organized Health Care Education/Training Program
DX: O02.1 Missed abortion (principal)
CPT/HCPCS: 36415; 84702

== ENCOUNTER 2022-05-21 17:37 | Emergency (ER) | payer OTHER, SELFPAY ==
--- NOTE | ~2022-05-21 | US_ITS ---
EXAMINATION: US OB <=14 wk fetus w TV DATE: 05/21/2022 21:26 INDICATION: Early . TECHNIQUE: Real-time transabdominal and transvaginal pelvic ultrasound was performed. COMPARISON: Ultrasound 12/08/2021 FINDINGS: TRANSABDOMINAL ULTRASOUND: The uterus measures 7.8 x 4.9 x 6.6 cm. TRANSVAGINAL ULTRASOUND: The endometrial complex measures 4 mm in thickness. There is no visible gest ational sac. The right ovary measures 4.8 x 1.5 x 2.1 cm. The left ovary measures 3.1 x 1.7 x 1.5 cm. There is no free fluid in the pelvis. IMPRESSION: 1. No visible intrauterine gestational sac, which may be normal in early . Spontaneous abor tion and ectopic are not excluded. Serial beta-hCGs are recommended. Reviewed, dictated and finalized at location [facility]. IMPRESSION: 1. No visible intrauterine gestational sac, which may be normal in early pregn loulou. Spontaneous and ectopic are not excluded. Serial beta- hCGs are recommended.
[2022-05-21 18:01] VITALS: BP 116/84; PULSE 86; RESP 14; TEMP 36.2; O2SAT 98
--- NOTE | 2022-05-21 18:09 | ED.ABDPAIN ---
HPI - Abdominal Pain General Chief Complaint: Abdominal Pain <Miguel Harkins MD - Last Filed: 05/21/22 19:05> Stated Complaint: ectopic pregnany, need methotrexate shot <Miguel Harkins MD - Last Filed: 05/21/22 19:05> Time Seen by Provider: 05/21/22 18:06 <Miguel Harkins MD - Last Filed: 05/21/22 19:05> Source: patient <Miguel Harkins MD - Last Filed: 05/21/22 19:05> Mode of arrival: ambulatory <Miguel Harkins MD - Last Filed: 05/21/22 19:05> Limitations: no limitations <Miguel Harkins MD - Last Filed: 05/21/22 19:05> History of Present Illness HPI narrative: 31 years old white female came from home because of right lower quadrant pain and vaginal bleeding, was 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 History of left ectopic . <Miguel Harkins MD - Last Filed: 05/21/22 19:05> Related Data Home Medications: Home Medications Medication Instructions Recorded Confirmed sertraline 50 mg tablet 25 mg PO .QOD 05/13/22 <Miguel Harkins MD - Last Filed: 05/21/22 19:05> Allergies/Adverse Reactions: Allergies Allergy/AdvReac Type Severity Reaction Status Date / Time No Known Allergies Allergy Unknown Verified 05/13/22 12:31 <Miguel Harkins MD - Last Filed: 05/21/22 19:05> Review of Systems Review of Systems: All systems reviewed & are unremarkable except as noted in HPI and below <Miguel Harkins MD - Last Filed: 05/21/22 19:05> PMFSH Past Medical History Medical History: Medical History History of depression 2012 History of ectopic x1 History of miscarriage, currently Miscarriage x4 Vaginal delivery x2 <Miguel Harkins MD - Last Filed: 05/21/22 19:05> Surgical History Surgical History: Surgical History History of salpingectomy 2019 <Miguel Harkins MD - Last Filed: 05/21/22 19:05> Family History Family History: Family History Grandparent Breast cancer Other Diabetes mellitus <Miguel Harkins MD - Last Filed: 05/21/22 19:05> Social History Social History: Social History Smoking status: Never smoker Second hand tobacco smoke exposure: No Alcohol intake: former Alcohol use details: history of two drinks per month Substance use: never Gender identity (if verbalized by the patient): Female Spiritual care concerns: No <Miguel Harkins MD - Last Filed: 05/21/22 19:05> Exam Narrative: General appearance: Well-developed, well-nourished Skin: Normal color Head: Normocephalic, nontraumatic Eyes: Clear conjunctiva ENT: Oropharynx normal, ears normal, nose normal Neck: Supple, nontender Chest and respiratory: Airway patent, no respiratory distress, no accessory muscle use Heart: Regular rate/rhythm Abdomen: Soft, positive right lower quadrant tenderness, no organomegaly, quiet bowel sounds Vascular: Normal peripheral pulses, normal capillary refill. 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
[2022-05-21] MEDS: SODIUM CHLORIDE 0.9% IV 1,000 ML 999 ML IV CONT (18:37)
[2022-05-21 18:50] LABS: Appearance Urine Clear (Clear); Bilirubin Urine Negative (Negative); Blood Urine Trace-intact (Negative); Color Urine Yellow (Yellow); Glucose Urine UA Negative (Negative); Ketones Urine Negative (Negative); Leukocyte Esterase Ur Trace LEU/UL (Negative); Nitrate Urine Negative (Negative); Protein Urine Negative (Negative); Specific Grav Ur 1.015 (1.001-1.035); Urobilinogen Urine 0.2 mg/dL (<2.0)
[2022-05-21 18:54] LABS: Alanine Aminotransferase 17 U/L (6-35); Albumin Level 4.9 g/dL (3.5-5.1); Alkaline Phosphatase 46 U/L (38-126); Anion Gap 11 mmol/L (8-16); Aspartate Amino Transferase 25 U/L (14-36); Bilirubin,Total 0.5 mg/dL (0.2-1.3); Blood Urea Nitrogen 16 mg/dL (7-17); Calcium 9.1 mg/dL (8.4-10.2); Carbon Dioxide 27 mmol/L (22-30); Chloride 101 mmol/L (98-107); Estimated CRCL calculation 74 ml/min; Estimated Glomerular Filt Rate > 60; Glucose 102 mg/dL (65-110); Sodium 139 mmol/L (137-145)
[2022-05-21 18:54] LABS: Mucus Urine Rare /lpf; RBC Urine 0-2 /hpf (0-2); Squamous Epithelial Cell Urine Rare /hpf (Few); WBC Urine 0-3 /hpf
[2022-05-21 18:56] LABS: Add Urine Microscopic? YES
[2022-05-21 19:10] LABS: Beta HCG Quantitative 36.74 mIU/ML
[2022-05-21 22:50] VITALS: BP 122/78; PULSE 76; RESP 18; O2SAT 99
== END 2022-05-21 22:51 | disposition home or self-care (01) ==
PROVIDERS: Emergency Medicine; Emergency Provider Emergency Medicine; PCP Internal Medicine
DX: O03.9 Complete or unspecified spontaneous abortion without complication (principal)
CPT/HCPCS: 36415; 76801; 76817; 80053; 81001; 84702; 85461; 86850; 86900; 86901; 96360; 99284; J7030

== ENCOUNTER 2023-05-10 16:35 | Outpatient (NON) | payer OTHER, SELFPAY ==
[2023-05-10 16:45] LABS: Appearance Urine Clear (Clear); Bilirubin Urine Negative (Negative); Blood Urine Trace-Intact (Negative); Color Urine Light Yellow (Yellow); Glucose Urine UA Negative (Negative); Ketones Urine Negative (Negative); Leukocyte Esterase Ur 1+ LEU/UL (Negative); Nitrate Urine Negative (Negative); Protein Urine Negative (Negative); Specific Grav Ur 1.015 (1.010-1.020); Urobilinogen Urine 0.2 mg/dL (0.2-1.0)
[2023-05-10 16:56] LABS: Add Urine Microscopic? YES
[2023-05-10 16:57] LABS: Bacteria Urine Trace /hpf; RBC Urine 0-2 /hpf (0-2); Squamous Epithelial Cell Urine Few /hpf (Few)
== END 2023-05-10 16:36 | disposition home or self-care (01) ==
LOC: CHSLAB 16:36
PROVIDERS: Visit Provider Nurse Practitioner Family
DX: R39.9 Unspecified symptoms and signs involving the genitourinary system (principal); R82.90 Unspecified abnormal findings in urine
CPT/HCPCS: 81001; 87086; 87088

== ENCOUNTER 2023-05-11 13:50 | Outpatient (CLI) | payer OTHER, MEDICAID, SELFPAY ==
[2023-05-16 13:09] LABS: Progesterone 16.9 ng/mL (***)
== END 2023-05-11 13:51 | disposition home or self-care (01) ==
PROVIDERS: PCP Nurse Practitioner Family; Visit Provider Obstetrics & Gynecology
DX: O09.299 Supervision of pregnancy with other poor reproductive or obstetric history, unspecified trimester (principal)
CPT/HCPCS: 36415; 84144; 84702

== ENCOUNTER 2023-05-16 13:05 | Outpatient (CLI) | payer OTHER, SELFPAY ==
--- NOTE | ~2023-05-16 | US_ITS ---
Pelvic ultrasound. Clinical History: First trimester , establish dates and viability Technique: Realtime transabdominal and transvaginal scanning of the pelvis was performed. Color flow Doppler and Doppler spectral analysis were performed. Findings: The uterus is anteverted, and contains an intrauterine gestation. [place]-rump length of 1.0 cm corresponds to an estimated gestational age of 7 weeks 1 day. heart rate is 152 bpm. The right ovary measures 3.0 x 2.2 x 2.3 cm. No significant right ovarian or adnexal mass is seen. The left ovary measures 3.0 x 2.7 x 4.8 cm. Left ovarian cyst measures up to 3.3 cm in maximum diamet er. There is no evidence of free fluid in the cul de sac. Impression: Live intrauterine gestation with estimated gestational age of 7 weeks 1 day. heart rate is 152 bpm. Reviewed, dictated and finalized at [facility]. Impression: Live intrauterine gestation with estimated gestational age of 7 weeks 1 day. Fe heather heart rate is 152 bpm.
== END 2023-05-16 13:06 | disposition home or self-care (01) ==
LOC: CHSIMG 13:06
PROVIDERS: PCP Nurse Practitioner Family; Visit Provider Obstetrics & Gynecology
DX: O36.80X0 Pregnancy with inconclusive fetal viability, not applicable or unspecified (principal); Z3A.01 Less than 8 weeks gestation of pregnancy
CPT/HCPCS: 76801

== ENCOUNTER 2023-07-01 15:58 | Outpatient (CLI) | payer OTHER, SELFPAY ==
[2023-07-01 16:30] LABS: Basophils Absolute Auto 0.03 K/mm3 (0.00-0.10); Basophils Percent Auto 0.4 % (0.0-1.0); Eosinophils Percent Auto 1.2 % (1.0-6.0); Hematocrit 37.2 % (35.0-49.0); Immature Granulocyte Absolute 0.03 K/mm3 (0.00-0.00); Immature Granulocyte Percent A 0.4 % (0.0-0.0); Lymphocytes Absolute Auto 1.83 K/mm3 (1.10-4.50); Lymphocytes Percent Auto 21.8 % (18.0-42.0); Mean Corpuscular HGB Conc 34.9 g/dL (32.0-36.0); Mean Corpuscular Hemoglobin 32.4 pg (27.0-31.0); Mean Corpuscular Volume 92.8 fL (78.0-102.0); Mean Platelet Volume 9.2 fl (9.2-11.8); Monocytes Absolute Auto 0.39 K/mm3 (0.10-0.90); Monocytes Percent Auto 4.7 % (2.0-11.0); Neutrophils Percent Auto 71.5 % (50.0-70.0); Platelet Count Result 256 K/mm3 (150-420); Red Blood Count 4.01 M/mm3 (4.20-5.40); Red Cell Distribution Width 12.7 % (11.6-14.4); White Blood Count 8.4 K/mm3 (4.8-10.8)
[2023-07-01 16:32] LABS: Appearance Urine Clear (Clear); Bilirubin Urine Negative (Negative); Blood Urine Negative (Negative); Color Urine Light Yellow (Yellow); Glucose Urine UA Negative (Negative); Ketones Urine Negative (Negative); Leukocyte Esterase Ur Negative (Negative); Nitrate Urine Negative (Negative); Protein Urine Negative (Negative); Urobilinogen Urine 0.2 mg/dL (0.2-1.0)
[2023-07-01 16:38] LABS: Add Urine Microscopic? NO
[2023-07-01 17:29] LABS: HIV 1 P24 AG Negative (Negative); HIV 1/2 AB Negative (Negative)
[2023-07-04 14:09] LABS: Rubella IgG Antibody 1.21 Index
[2023-07-05 12:47] LABS: Hepatitis B Surface Antigen Nonreactive (Nonreactive); Hepatitis C Virus Antibody Nonreactive
[2023-07-06 08:10] LABS: RPR Screen Non-Reactive (Non-Reactive)
== END 2023-07-01 15:59 | disposition home or self-care (01) ==
LOC: CHSLAB 16:00
PROVIDERS: PCP Nurse Practitioner Family; Visit Provider Registered Nurse
DX: Z34.90 Encounter for supervision of normal pregnancy, unspecified, unspecified trimester (principal)
CPT/HCPCS: 36415; 81003; 82306; 84443; 85025; 86592; 86762; 86787; 86803; 86900; 86901; 87077; 87086; 87088; 87186; 87340; 87806

== ENCOUNTER 2023-09-24 08:19 | Outpatient (CLI) | payer OTHER, SELFPAY ==
[2023-09-24 09:36] LABS: Basophils Absolute Auto 0.03 K/mm3 (0.00-0.10); Basophils Percent Auto 0.3 % (0.0-1.0); Eosinophils Absolute Auto 0.09 K/mm3 (0.02-0.50); Hematocrit 35.9 % (35.0-49.0); Hemoglobin 11.8 g/dL (12.0-15.0); Immature Granulocyte Absolute 0.04 K/mm3 (0.00-0.00); Immature Granulocyte Percent A 0.5 % (0.0-0.0); Lymphocytes Absolute Auto 1.38 K/mm3 (1.10-4.50); Mean Corpuscular HGB Conc 32.9 g/dL (32.0-36.0); Mean Corpuscular Hemoglobin 31.1 pg (27.0-31.0); Mean Corpuscular Volume 94.7 fL (78.0-102.0); Mean Platelet Volume 8.7 fl (9.2-11.8); Monocytes Absolute Auto 0.46 K/mm3 (0.10-0.90); Monocytes Percent Auto 5.3 % (2.0-11.0); Neutrophils Absolute Auto 6.6 K/mm3 (1.7-7.2); Neutrophils Percent Auto 76.9 % (50.0-70.0); Platelet Count Result 195 K/mm3 (150-420); Red Blood Count 3.79 M/mm3 (4.20-5.40); Red Cell Distribution Width 12.8 % (11.6-14.4); White Blood Count 8.6 K/mm3 (4.8-10.8)
[2023-09-24 10:31] LABS: Glucose 1 Hour PP 50gm Dose 117 mg/dL (70-130)
== END 2023-09-24 08:20 | disposition home or self-care (01) ==
LOC: CHSLAB 08:23
PROVIDERS: PCP Nurse Practitioner Family; Visit Provider Nurse Practitioner Family
DX: Z34.82 Encounter for supervision of other normal pregnancy, second trimester (principal)
CPT/HCPCS: 36415; 82947; 85025; 86850

== ENCOUNTER 2023-11-08 15:41 | Observation (INO) | payer OTHER, SELFPAY ==
[2023-11-08 16:06] VITALS: BP 118/75; PULSE 87
[2023-11-08 16:16] VITALS: BMI 31.0
--- NOTE | 2023-11-08 16:16 | OBADM ---
This patient, Dilma Woodward, admitted to the OB room OB Post 116 for observation. Patient/family oriented to hospital policies and general routines including ID bracelet, bed and alarms, visiting hours, pain management, procedures, bathroom and other care routines, personal items, smoking policy, room service/diet, and visiting hours. Patient/Family are encouraged to report perceived risks to care and to ask questions if they do not understand what they are told or what they should do.
[2023-11-08 16:25] LABS: Appearance Urine Cloudy (Clear); Bacteria Urine None Seen /hpf; Bilirubin Urine Negative (Negative); Blood Urine Negative (Negative); Color Urine Yellow (Yellow); Glucose Urine UA Negative (Negative); Ketones Urine Negative (Negative); Leukocyte Esterase Ur 3+ LEU/UL (Negative); Nitrate Urine Negative (Negative); Non Pathogenic Casts 0-2; Protein Urine Negative (Negative); RBC Urine 0-2 /hpf (0-2); Specific Grav Ur 1.008 (1.001-1.035); Squamous Epithelial Cell Urine Few /hpf (Few); Urobilinogen Urine 0.2 mg/dL (<2.0); pH Urine 7.5 (5.0-9.0)
[2023-11-08 16:31] LABS: Add Urine Microscopic? YES
[2023-11-08 17:00] VITALS: BP 111/71; PULSE 79
--- NOTE | 2023-11-09 15:15 | P.PNOB_ITS ---
OB - Triage/Final Diagnosis Visit Information Comments/Additional reasons for admission: I have assessed the risk for this patient, Dilma Woodward, and determined that she would benefit from observation care. Evaluation Laboratory results: Laboratory Tests 11/08/23 16:06 Urine Color Yellow Urine Appearance Cloudy H Urine pH 7.5 Ur Specific [place] 1.008 Urine Protein Negative Urine Glucose (UA) Negative Urine Ketones Negative Ur Blood (Man) Negative Urine Nitrate Negative Urine Bilirubin Negative Urine Urobilinogen 0.2 Leukocyte Esterase Rfl 3+ H Urine RBC 0-2 Urine WBC 6-10 H Ur Squamous Epith Cells Few Urine Bacteria None seen Urine Casts 0-2 Vital signs: Vital Signs - 24 hr 11/08/23 16:06 11/08/23 17:00 Pulse Rate 87 79 Blood Pressure 118/75 111/71 Final Diagnosis (1) contractions: Code(s): O47.00 - False labor before 37 completed weeks of gestation, unspecified trimester Status: Acute
== END 2023-11-08 17:15 | disposition home or self-care (01) ==
PROVIDERS: Admitting Provider Obstetrics & Gynecology; PCP Nurse Practitioner Family; Visit Provider Obstetrics & Gynecology
DX: O47.03 False labor before 37 completed weeks of gestation, third trimester (principal); Z3A.32 32 weeks gestation of pregnancy
CPT/HCPCS: 81001; 87086; G0378; G0379

== ENCOUNTER 2023-11-21 09:18 | Outpatient (CLI) | payer OTHER, SELFPAY ==
[2023-11-21 10:38] LABS: Hematocrit 38.1 % (35.0-49.0); Hemoglobin 12.3 g/dL (12.0-15.0); Mean Corpuscular HGB Conc 32.3 g/dL (32-36); Mean Corpuscular Hemoglobin 30.8 pg (27.0-31.0); Mean Corpuscular Volume 95.5 fL (78.0-102.0); Mean Platelet Volume 8.8 fl (9.2-11.8); Platelet Count Result 162 K/mm3 (150-420); Red Blood Count 3.99 M/mm3 (4.20-5.40); Red Cell Distribution Width 13.5 % (11.6-14.4); White Blood Count 8.2 K/mm3 (4.8-10.8)
[2023-11-21 11:10] LABS: Glucose 1 Hour PP 50gm Dose 105 mg/dL (70-130)
[2023-11-21 11:50] LABS: HIV 1 P24 AG Negative (Negative); HIV 1/2 AB Negative (Negative)
[2023-11-23 11:59] LABS: RPR Screen NON-REACTIVE (NON-REACTIVE)
== END 2023-11-21 09:19 | disposition home or self-care (01) ==
LOC: CHSIMG 09:20
PROVIDERS: PCP Nurse Practitioner Family; Visit Provider Obstetrics & Gynecology
DX: O36.60X0 Maternal care for excessive fetal growth, unspecified trimester, not applicable or unspecified (principal)
CPT/HCPCS: 36415; 82947; 85027; 86592; 87806

== ENCOUNTER 2023-12-22 15:38 | Inpatient (IN) | payer OTHER, SELFPAY ==
[2023-12-22] VITALS (112 sets, daily range): BP systolic 85–181; BP diastolic 30–160; PULSE 25–222; TEMP 36.3–36.9; O2SAT 75–100; BMI 31.8
--- NOTE | 2023-12-22 16:31 | LDADM ---
This patient, Dilma Woodward, was admitted to Labor/Delivery/Recovery 105 on 12/22/23 at 15:38. Plans for labor, pain management and were discussed with patient. Patient/family oriented to hospital policies and general routines including ID bracelet, bed and alarms, visiting hours, pain management, procedures, bathroom and other care routines, personal items, smoking policy, room service/diet and guest tray routines, infant security routines, and visiting hours. Patient/Family are encouraged to report perceived risks to care and to ask questions if they do not understand what they are told or what they should do. See OBIX for further documentation.
[2023-12-22] MEDS: LACTATED RINGERS 1,000 ML 125 ML IV CONT (16:42)
[2023-12-22] MEDS: AMPICILLIN 2 GM/NS 100 ML 2 GM/100 ML BAG IVPB (16:42)
[2023-12-22 16:43] LABS: Basophils Percent Auto 0.3 % (0.2-1.2); Eosinophils Absolute Auto 0.1 K/mm3 (0-0.3); Eosinophils Percent Auto 0.6 % (0-4.4); Hematocrit 38.2 % (37.0-47.0); Hemoglobin 12.9 g/dL (12.0-15.0); Immature Granulocyte Absolute 0.05 K/mm3 (0.00-0.031); Immature Granulocyte Percent A 0.5 % (0-0.5); Lymphocytes Absolute Auto 1.52 K/mm3 (0.9-3.2); Lymphocytes Percent Auto 15.7 % (18.3-44.2); Mean Corpuscular HGB Conc 33.8 g/dl (32-36); Mean Corpuscular Hemoglobin 31.9 pg (26-34); Mean Corpuscular Volume 94.6 fl (80-100); Mean Platelet Volume 9.8 fl (7.4-10.4); Monocytes Absolute Auto 0.7 K/mm3 (0.1-0.6); Monocytes Percent Auto 6.9 % (2.6-8.5); Neutrophils Absolute Auto 7.4 K/mm3 (1.3-6.7); Platelet Count Result 195 k/mm3 (150-375); Red Blood Count 4.04 M/mm3 (4.2-5.4); Red Cell Distribution Width 13.9 % (11.5-14.5); White Blood Count 9.7 K/mm3 (4.5-10.0)
[2023-12-22 17:31] LABS: HIV 1/2 Ab P24 Ag Result Negative (Negative)
--- NOTE | 2023-12-22 18:56 | WPDANESEPP ---
Anes - Eval Pre Procedure Procedure: Labor epidural Date/Time: 12/22/23 18:56 Surgeon: Ra Preop Diagnosis: Abdominal pain with contractions Pre Op Diagnosis: Labor Patient Data Age: 33 Gender: F Height: 1.73 m Weight: 95 kg Last Vital Signs Pulse 87 12/22/23 18:45 BP 119/72 12/22/23 18:45 O2 Del Method Room Air 12/22/23 16:29 Allergies Allergy/AdvReac Type Severity Reaction Status Date / Time No Known Allergies Allergy Unknown Verified 12/20/23 14:35 Home Medications Medication Instructions Recorded Confirmed Type vits no.126-ferrous fum 1 tablet PO DAILY 06/20/23 12/20/23 History 28 mg iron-folic acid 800 mcg tablet (Classic ) Laboratory Tests 12/22/23 16:23 WBC 9.7 K/mm3 (4.5-10.0) RBC 4.04 L M/mm3 (4.2-5.4) Hgb 12.9 g/dL (12.0-15.0) Hct 38.2 % (37.0-47.0) MCV 94.6 fl (80-100) MCH 31.9 pg (26-34) MCHC 33.8 g/dl (32-36) RDW 13.9 % (11.5-14.5) Plt Count 195 k/mm3 (150-375) MPV 9.8 fl (7.4-10.4) Immature Gran % (Auto) 0.5 % (0-0.5) Neut % (Auto) 76.0 H % (45.5-73.1) Lymph % (Auto) 15.7 L % (18.3-44.2) [place] % (Auto) 6.9 % (2.6-8.5) Eos % (Auto) 0.6 % (0-4.4) Baso % (Auto) 0.3 % (0.2-1.2) Lymph # (Auto) 1.52 K/mm3 (0.9-3.2) Potter # (Auto) 0.7 H K/mm3 (0.1-0.6) Eos # (Auto) 0.1 K/mm3 (0-0.3) Baso # (Auto) 0.0 K/mm3 (0.0-0.1) Abs Immat Gran (auto) 0.05 H K/mm3 (0.00-0.031) Absolute Neuts (auto) 7.4 H K/mm3 (1.3-6.7) Absolute Nucleated RBC 0.000 K/mm3 (0.0-0.012) Nucleated RBC % 0.0 % (0.0-0.2) RPR Pending HIV 1&2 Ab/P24 Ag 4thGn Negative (Negative) Blood Type O Positive Antibody Screen Negative : gestational age HCG: positive Patient hx anesthesia problems: none Family hx anesthesia problems: none Results Review: All pre-operative results and documents have been reviewed as part of the pre-operative evaluation. [facility] Past Medical History Medical History Anorexia nervosa with bulimia History of depression 2012 History of ectopic x1 History of miscarriage, currently Miscarriage x4 Vaginal delivery x2 Surgical History Surgical History History of salpingectomy 2019 Family History Family History Grandparent Breast cancer Other Diabetes mellitus Social History Social History Smoking status: Never smoker Second hand tobacco smoke exposure: No Alcohol intake: former Alcohol use details: history of two drinks per month Substance use: never Do You Feel Safe in your Home?: Yes Lack of Transportation: No Lack of Food: Never True Current Housing: I Have Housing Concerned About Future Housing: No Difficulty Paying Gas/Electric Bills: No Difficulty Paying for Meds: No Currently Unemployed: No Education: High School Diploma/GED Difficulty w/ Childcare or Family Care: No Living arrangements: with family Gender identity (if verbalized by the patient): Female Sexual Orientation (if Verbalized by the Patient): Straight or Heterosexual Spiritual care concerns: No Exam Day of Procedure 12/22/23 18:56 Patient weight: overweight
[2023-12-22] MEDS: PHENYLEPHRINE 1,000 MCG/10 ML SYRINGE 100 MCG IV PUSH (19:24)
[2023-12-22] MEDS: AMPICILLIN 1 GM/NS 50 ML 1 GM/50 ML BAG IVPB (20:39)
[2023-12-22] MEDS: OXYTOCIN 30 UNITS/NS 500 ML 30 UNITS/500 ML BAG IV CONT (20:40)
[2023-12-22] MEDS: ONDANSETRON INJ 4 MG/2 ML VIAL IV PUSH (21:21)
--- NOTE | 2023-12-22 22:54 | PM.IMHP ---
H&P: HPI History of Present Illness Date/Time: 12/22/23 22:54 Chief Complaint: Leaking of fluid Narrative: She is 39 weeks admitted for SROM, clear. Cervix 4 cm, irregular contractions. PNC significant for LGA fetus. GBS positive. Review of Systems Review of Systems: All systems reviewed & are unremarkable except as noted in HPI and below Constitutional: Constitutional: Reports no additional constitutional complaints and Denies headache(s) Eyes: Eyes: Denies spots in vision ENT: Reports system reviewed and no additional complaints, except as documented and Denies headache(s) Cardiovascular: Cardiovascular: Denies chest pain and Denies dyspnea Respiratory: Respiratory: Denies dyspnea Gastrointestinal: Gastrointestinal: Reports no additional gastrointestinal complaints Genitourinary: Genitourinary: Reports amenorrhea Musculoskeletal: Musculoskeletal: Reports no additional musculoskeletal complaints Integumentary/Breasts: Skin/Breast: Denies breast mass and Denies rash Neurologic: Denies headache(s) Psychiatric: Psychiatric: Reports no additional psychiatric complaints PMFSH Past Medical History Medical History Anorexia nervosa with bulimia History of depression 2012 History of ectopic x1 History of miscarriage, currently Miscarriage x4 Vaginal delivery x2 Surgical History Surgical History History of salpingectomy 2019 Family History Family History Grandparent Breast cancer Other Diabetes mellitus Social History Social History Smoking status: Never smoker Second hand tobacco smoke exposure: No Alcohol intake: former Alcohol use details: history of two drinks per month Substance use: never Do You Feel Safe in your Home?: Yes Lack of Transportation: No Lack of Food: Never True Current Housing: I Have Housing Concerned About Future Housing: No Difficulty Paying Gas/Electric Bills: No Difficulty Paying for Meds: No Currently Unemployed: No Education: High School Diploma/GED Difficulty w/ Childcare or Family Care: No Living arrangements: with family Gender identity (if verbalized by the patient): Female Sexual Orientation (if Verbalized by the Patient): Straight or Heterosexual Spiritual care concerns: No Meds Home Medications and Allergies Home Medications Medication Instructions Recorded Confirmed Type vits no.126-ferrous fum 1 tablet PO DAILY 06/20/23 12/20/23 History 28 mg iron-folic acid 800 mcg tablet (Classic ) Allergies Allergy/AdvReac Type Severity Reaction Status Date / Time No Known Allergies Allergy Unknown Verified 12/20/23 14:35 Vital Signs Vital Signs - 24 hr 12/22/23 16:00 12/22/23 16:30 12/22/23 16:45 Temperature Pulse Rate 89 89 90 Blood Pressure 122/71 113/76 117/74 Pulse Oximetry Oxygen Delivery 12/22/23 17:00 12/22/23 17:15 12/22/23 17:30 Temperature Pulse Rate 88 94 86 Blood Pressure 117/70 110/72 119/75 Pulse Oximetry Oxygen Delivery 12/22/23 17:45 12/22/23 18:00 12/22/23 18:15 Temperature Pulse Rate 90 97 91 Blood Pressure 120/74 124/80 121/75 Pulse Oximetry Oxygen Delivery 12/22/23 18:30 12/22/23 18:45 12/22/23 18:56 Temperature Pulse Rate 85 87 Blood Pressure 117/78 119/72 Pulse Oximetry 98 Oxygen Delivery 12/22/23 19:00 12/22/23 19:01 12/22/23 19:03 Temperature 97.4 F L Pulse Rate 97 94 Blood Pressure 136/84 128/75 Pulse Oximetry 99 Oxygen Delivery 12/22/23 19:04 12/22/23 19:06 12/22/23 19:08 Temperature Pulse Rate 89 98 Blood Pressure 124/76 118/89 Pulse Oximetry 99 99 Oxygen Delivery 12/22/23 19:09 12/22/23 19:12 12/22/23 19:13 Te
--- NOTE | 2023-12-22 23:16 | PM.OBPRVD ---
OB - Vaginal Delivery Note Procedure Delivery date: 12/22/23 Events: Macrosomia and Positive Group B Strep (GBS) Induction method: None Delivery augmentation: Pitocin Delivery monitor: External FHT Route of delivery: Episiotomy description: None Specimen: No Quantitative Blood Loss (ml): 200 Anesthesia type: Epidural Disposition: Floor Complications: No immediate complications Narrative: She was admitted for SROM and early labor. IV antibiotics started for positive GBS. She had epidural placed on request. She had pitocin augmentation. She dilated to complete and delivered a male over intact perineum. 's nose and mouth suctioned at perineum. Shoulders delivered with gentle traction and the rest of the infant was delivered and placed on maternal abdomen. Infant was vigorously crying. Delayed cord clamping for one minute and then cord doubly clamped and cut. Cord blood and cord gases obtained. Pitocin started. Placenta delivered spontaneously and intact. Baby Date of : 12/22/23 Time of : 23:06 Weeks of gestation at delivery: 38 gender: Male Weight (pounds): 8 Weight (ounces): 5 presentation: vertex position: Right Occiput Anterior Placenta delivery description: Spontaneous Cord Vessel Description: 3 Vessels score one minute: 9 score five minutes: 9
[2023-12-22] MEDS: OXYTOCIN 30 UNITS/NS 500 ML 30 UNITS/500 ML BAG 125 UNITS IV CONT (23:40)
[2023-12-23] VITALS (8 sets, daily range): BP systolic 100–126; BP diastolic 59–88; PULSE 66–96; RESP 16–18; TEMP 36.4–36.7; O2SAT 96–100
--- NOTE | 2023-12-23 01:20 | OBPPTRN ---
Patient transferred to post room #291 via wheelchair. Support person- spouse present. Oriented to unit, room, information board, rooming in, admission packet and security measures. Patient verbalizes understanding.
[2023-12-23] MEDS: BENZOCAINE 20% AER SPR (*SP) 56 GM CAN 1 SPRAY TOPICAL (03:11)
[2023-12-23] MEDS: WITCH HAZEL 40 PADS 1 PAD TOPICAL (03:12)
[2023-12-23] MEDS: LANOLIN (LANSINOH) 7.5 GM CREAM 1 APPLIC TOPICAL (03:13)
[2023-12-23 05:30] LABS: Hematocrit 33.3 % (37.0-47.0); Hemoglobin 11.2 g/dL (12.0-15.0)
[2023-12-23] MEDS: IBUPROFEN 600 MG TABLET PO ×3 (05:54→19:19)
[2023-12-23] MEDS: DOCUSATE SODIUM 100 MG CAPSULE PO (08:04)
[2023-12-23] MEDS: MULTIVIT/MIN/PREN/FOL AC/IRON TABLET 1 TAB PO (08:04)
--- NOTE | 2023-12-23 08:59 | PM.OBPNVD ---
OB - PN: Subj Subjective Date/time seen: 12/23/23 08:59 Interval history: She request to be started on Zoloft, which she did with last . Patient comments: pain well controlled, tolerating diet and other (Decreasing lochia.) [place] baby status: doing well and nursing well [place] feeding status: exclusively breast feeding OB - PN: Obj Data Labs 12/23/23 04:42 Labs: Laboratory Results - last 24 hr 12/22/23 12/23/23 16:23 04:42 WBC 9.7 RBC 4.04 L Hgb 12.9 11.2 L Hct 38.2 33.3 L MCV 94.6 MCH 31.9 MCHC 33.8 RDW 13.9 Plt Count 195 MPV 9.8 Immature Gran % (Auto) 0.5 Neut % (Auto) 76.0 H Lymph % (Auto) 15.7 L [place] % (Auto) 6.9 Eos % (Auto) 0.6 Baso % (Auto) 0.3 Lymph # (Auto) 1.52 [place] # (Auto) 0.7 H Eos # (Auto) 0.1 Baso # (Auto) 0.0 Abs Immat Gran (auto) 0.05 H Absolute Neuts (auto) 7.4 H Absolute Nucleated RBC 0.000 Nucleated RBC % 0.0 HIV 1&2 Ab/P24 Ag 4thGn Negative Blood Type O Positive Antibody Screen Negative OB - PN A/P Plan day: 1 Plan: routine care Comments: Patient doing well. Time Spent With Patient Time: Total time spent is greater than 50% in coordination of care (as documented) at patient's floor/unit and/or counseling patient: Exam Psych: Affect: normal affect Other: Abd: fundus firm below umbilicus, nontender Ext: nontender
[2023-12-23] MEDS: SERTRALINE HCL 50 MG TABLET PO (09:38)
[2023-12-23 12:34] LABS: Rapid Plasma Reagin Non-Reactive (NonReactive)
--- NOTE | 2023-12-23 13:02 | WPDANLDPN2 ---
Anes-Prog Note L&D Date/Time: 12/23/23 13:02 Neuro status: Neuro function grossly intact. Vital Signs: Last Vital Signs Temp 36.7 C 12/23/23 08:30 Pulse 76 12/23/23 08:30 Resp 16 12/23/23 08:30 BP 109/70 12/23/23 08:30 Pulse Ox 98 12/23/23 08:30 O2 Del Method Room Air 12/23/23 08:10 Pain score (VAS): 0 I/O: Intake & Output 12/22/23 12/23/23 12/23/23 23:59 07:59 15:59 Intake Total 500 Output Total 1400 575 Balance -1400 -75 Patient feedback: Patient satisfied with anesthetic care.
--- NOTE | 2023-12-23 15:39 | PC.NURSE ---
[id number] Introductions were made, then consulted with patient to assess needs related to . Mother led the conversation with her?plans to feed?her infant, the?experience so far and shared a history of her second child for two years. Encouraged understanding of the benefits of skin to skin (demonstrating unwrapping infant and placing upright on her chest), stimulating with massage touch, changing positions to encourage wakefulness, how to watch for early feeding cues, responsive feeding, feeding on demand (aiming for 8-12 times in 24 hours, about every 2-3 hours), milk production, hand expression, building/maintaining a milk supply, duration of feeding, signs of adequate intake/output and how to record on the feeding sheet. Mother works well with her with encouragement and education. Finger fed 1/2 tsp of colostrum to with a gloved finger since was sleepy and reluctant to wake to breastfeed. Reviewed positioning and ear, shoulder, hip alignment, supporting the breast to facilitate a deep latch, asymmetrical latch (off-center), leading with the chin with a big, open, wide gape and body close to mother. Assessment of infants tongue is forked with extension and the lift is restricted. Referred parents to their Hasher Operator. Infant latched to the right, then the left breast in cross cradle position. Education given to the mother of how to visualize the suckling (with good rocking jaw motion), swallows (dropping of the lower jaw) and how to listen for drinking at the breast (the ka sound) and demonstrated occasionally. Infant was able to maintain latch without pain to mother, however; after detaching to assess nipple after changed from a drinking pattern to a hanging out sucking pattern the nipple was visualized as misshaped. Reminded mother to protect the nipple with optimal positioning, latching and using the U-hold for cross cradle and football positioning to facilitate latch. Reviewed comfort measures of healing with a warm, wet washcloth to rinse breast, then leave open to air-dry, good handwashing when or touching the breast/nipples to prevent infection. Education was reviewed, questions answered, reminded mother of what to watch for and how to protect her nipples with position changes and breast switching. Mother voiced understanding of skin to skin, stimulating with massage touch, responsive feedings, hand expressed colostrum, talking to to encourage if it has been 2 -2.5 hours since the start of the last , to call if infant does not latch, or if there is discomfort with . Resources used for education were facilitated with the visual educational handout. Reported to the Primary RN that education and assistance needs to be reinforced. Dr. Baker notified of assessment.
[2023-12-24] MEDS: DIBUCAINE 1% OINTMENT 30 GM TUBE 1 APPLIC TOPICAL (01:00)
[2023-12-24] MEDS: IBUPROFEN 600 MG TABLET PO (05:20)
[2023-12-24 07:40] VITALS: BP 123/87; PULSE 89; RESP 16; TEMP 36.5; O2SAT 99
[2023-12-24] MEDS: SERTRALINE HCL 50 MG TABLET PO (07:45)
[2023-12-24] MEDS: MULTIVIT/MIN/PREN/FOL AC/IRON TABLET 1 TAB PO (07:46)
[2023-12-24] MEDS: DOCUSATE SODIUM 100 MG CAPSULE PO (07:53)
--- NOTE | 2023-12-24 10:16 | PM.OBPNVD ---
OB - PN: Subj Subjective Date/time seen: 12/24/23 10:16 Narrative: PPD#2 Dilma reports doing well today. 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 Her pain is controlled. She is tolerating regular diet, voiding, passing gas, and ambulating without issues. She is breast feeding. OB - PN: Obj Data Labs 12/23/23 04:42 Labs: Laboratory Results - last 24 hr 12/22/23 16:23 RPR Non-reactive OB - PN A/P Assessment and Plan (1) Normal spontaneous vaginal delivery: Code(s): O80 - Encounter for full-term uncomplicated delivery Status: Acute Plan day: 2 Plan: routine care and discharge home Comments: - Sertraline 50mg daily - Pelvic rest; take meds as prescribed - ER return precautions: fever, n/v/abd pain, bleeding, HTN Time Spent With Patient Time: Total time spent is greater than 50% in coordination of care (as documented) at patient's floor/unit and/or counseling patient: Review of Systems Constitutional: Constitutional: Denies chills, Denies fever(s) and Denies headache(s) Eyes: Eyes: Denies change in vision ENT: Denies dizziness and Denies headache(s) Cardiovascular: Cardiovascular: Denies chest pain, Denies palpitations and Denies dyspnea Respiratory: Respiratory: Denies cough and Denies dyspnea Gastrointestinal: Gastrointestinal: Denies nausea and Denies vomiting Neurologic: Denies dizziness and Denies headache(s) Endocrine: Endocrine: Denies palpitations Exam Const: General: cooperative, comfortable and no acute distress Orientation/consciousness: patient oriented x3 Resp: Effort & Inspection: normal respiratory effort Auscultation: clear to auscultation bilaterally Cardio: Rate: regular rate GI: Inspection: non-distended GI Palp: No abdominal tenderness and Yes Soft to palpation Auscultation: normal bowel sounds : Other: fundus firm Skin: General skin exam: normal color Neuro: General: patient oriented x3 Extrem: General: normal to inspection Psych: Appearance: grossly normal Affect: normal affect Attitude: cooperative
--- NOTE | 2023-12-24 10:21 | PM.OBDSVD ---
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 IV Ampicillin started for GBS carrier. She had pitocin augmentation. She had a vaginal delivery. She did well . She requested to be started on zoloft due to history of depression. Zoloft 50mg prescribed. <Sunil Knapp MD - Last Filed: 12/26/23 13:46> OB Procedures : Ultrasound <Sunil Knapp MD - Last Filed: 12/26/23 13:46> OB Procedures Intrapartum: Spontaneous Vag Delivery <Sunil Knapp MD - Last Filed: 12/26/23 13:46> OB Procedures: : None <Sunil Knapp MD - Last Filed: 12/26/23 13:46> Peripartum Data Delivery Method: Natural Vaginal <Sunil Knapp MD - Last Filed: 12/26/23 13:46> Episiotomy description: None <Sunil Knapp MD - Last Filed: 12/26/23 13:46> complications: none <Sunil Knapp MD - Last Filed: 12/26/23 13:46> 1: Gender: Male <Margie Najera MD - Last Filed: 12/24/23 12:04> Disposition of : home <Margie Najrea MD - Last Filed: 12/24/23 12:04> Status at Discharge Functional status at discharge: independent ambulation <Sunil Knapp MD - Last Filed: 12/26/23 13:46> Time Spent with Patient Time attestation: Total time spent providing and/or coordinating discharge services: <Sunil Knapp MD - Last Filed: 12/26/23 13:46> Exam Const: General: cooperative <Sunil Knapp MD - Last Filed: 12/26/23 13:46> Orientation/consciousness: oriented to person, oriented to place and oriented to time <Sunil Knapp MD - Last Filed: 12/26/23 13:46> HENMT: Face/Nose/Sinus: Normal external nose present <Sunil Knapp MD - Last Filed: 12/26/23 13:46> Eyes: General: appearance normal, both eyes and all related structures <Sunil Knapp MD - Last Filed: 12/26/23 13:46> Resp: Effort & Inspection: normal respiratory effort <Sunil Knapp MD - Last Filed: 12/26/23 13:46> GI: Inspection: normal to inspection <Sunil Knapp MD - Last Filed: 12/26/23 13:46> Skin: General skin exam: normal color <Sunil Knapp MD - Last Filed: 12/26/23 13:46> Neuro: General: oriented to person, oriented to place and oriented to time <Sunil Knapp MD - Last Filed: 12/26/23 13:46> Extrem: General: normal to inspection and no calf tenderness <Sunil Knapp MD - Last Filed: 12/26/23 13:46> Psych: Appearance: grossly normal <Sunil Knapp MD - Last Filed: 12/26/23 13:46> Mental Status: mental status grossly normal <Sunil Knapp MD - Last Filed: 12/26/23 13:46> DS: Data Data Completed and Pending Labs on day of discharge: Labs from last 24 hours 12/23/23 12/22/23 04:42 16:23 WBC 9.7 RBC 4.04 L Hgb 11.2 L 12.9 Hct 33.3 L 38.2 MCV 94.6 MCH 31.9 MCHC 33.8 RDW 13.9 Plt Count 195 MPV 9.8 Immature Gran % (Auto) 0.5 Neut % (Auto) 76.0 H Lymph % (Auto) 15.7 L [place] % (A
[2023-12-27 11:30] VITALS: BP 131/88; PULSE 85; RESP 18; TEMP 36.9; O2SAT 100
== END 2023-12-24 15:18 | disposition home or self-care (01) | DRG 807 ==
LOC: ANHLDR 16:00 → ANHOB2 12-23 09:08 → ANHLDR 12-26 13:08 → ANHOB2 12-26 13:08
PROVIDERS: Admitting Provider Obstetrics & Gynecology; PCP Nurse Practitioner Family; Visit Provider Obstetrics & Gynecology
DX: O99.824 Streptococcus B carrier state complicating childbirth (principal); Z37.0 Single live birth; O36.63X0 Maternal care for excessive fetal growth, third trimester, not applicable or unspecified; O99.344 Other mental disorders complicating childbirth; F32.89 Other specified depressive episodes; Z3A.39 39 weeks gestation of pregnancy
CPT/HCPCS: 36415; 84112; 85014; 85018; 85025; 86592; 86703; 86850; 86900; 86901; A9270; G0432; J0290; J2371; J2405; J2590; J2795; J7120